=== PATIENT | male | born 1980 | race African-American/Black ===

== ENCOUNTER 2021-05-20 23:53 | Emergency (ER) | payer OTHER ==
[2021-05-21] MEDS ORDERED: KEFLEX750 MG PO (00:05)
== END 2021-05-21 00:10 ==
LOC: ER1 23:53
DX: S60.352A Superficial foreign body of left thumb, initial encounter (principal); S20.352A Superficial foreign body of left front wall of thorax, initial encounter; Z88.0 Allergy status to penicillin; X58.XXXA Exposure to other specified factors, initial encounter
CPT/HCPCS: 99283